=== PATIENT | male | born 1955 | race Hispanic/Latino ===

== ENCOUNTER → 2017-04-18 | Outpatient (CLI) | payer OTHER | LOC: GMAM 10:27 | PROVIDERS: ATTEND Family Medicine | DX: Z12.5 Encounter for screening for malignant neoplasm of prostate (principal) ==

== ENCOUNTER 2017-07-09 07:15 | Emergency (ER) | payer OTHER ==
[2017-07-09 07:38] VITALS: TEMP 98.1
--- NOTE | 2017-07-09 07:43 | ED.PDOC ---
History of Present Illness - General Chief Complaint: Laceration Stated Complaint: laceration Time Seen by Provider: 07/09/17 07:40 Source: patient Exam Limitations: no limitations - History of Present Illness Initial Comments: Mumtaz Gagnon 61 y/o male stated hurt his finger while working on his table saw at home sustainining skin laceration 07/08/2017.Initial wound care done at home.Came to get it checked. Timing/Duration: yesterday Severity: moderate Location: extremities - righ hand 3-4 th fingers Improving Factors: rest Worsening Factors: movement Associated Symptoms: denies symptoms Allergies/Adverse Reactions: Allergies NO KNOWN ALLERGY Allergy (Unverified 05/05/13 13:18) Home Medications: Ambulatory Orders Lisinopril 10 mg PO DAILY 06/02/14 Metformin HCl [Fortamet] 500 mg PO DAILY 06/02/14 Amoxicillin [Amoxil] 1,000 mg PO BID #30 cap 07/09/17 Simvastatin 0 mg PO DAILY 07/09/17 Review of Systems - Review of Systems Constitutional: States: no symptoms reported EENTM: States: no symptoms reported Respiratory: States: no symptoms reported Cardiology: States: no symptoms reported Skin: States: see HPI Past Medical History (General) - Patient Medical History Hx Seizures: No Hx Stroke: No Hx Dementia: No Hx Asthma: No Hx of COPD: No Hx Cardiac Disorders: No Hx Congestive Heart Failure: No Hx Pacemaker: No Hx Hypertension: Yes Hx Thyroid Disease: No Hx Diabetes: Yes Hx Gastroesophageal Reflux: No Hx Renal Disease: No Hx Cancer: No Hx of HIV: No Hx Hepatitis C: No Hx MRSA: No Surgical History: no surgical history - Vaccination History Hx Tetanus, Diphtheria Vaccination: - unknown Hx Influenza Vaccination: Yes Hx Pneumococcal Vaccination: No Immunizations Up to Date: No - Social History Hx Tobacco Use: Yes - quit 20 years ago Hx Alcohol Use: Yes - occasional Hx Substance Use: No Hx Substance Use Treatment: No Hx Depression: No - Female History Patient is a Female of Child Bearing Age (10 -59 yrs old): No Family Medical History - Family History Mother Family History: No Known Hx Family Hypertension: Yes - multiple family members Hx Family Diabetes: Yes - several family members Physical Exam - Physical Exam General Appearance: Alert, No apparent distress Eyes, Ears, Nose, Throat Exam: normal ENT inspection Neck: non-tender, supple Cardiovascular/Chest: normal peripheral pulses, regular rate, rhythm, no murmur Respiratory: chest non-tender, lungs clear Gastrointestinal/Abdominal: non tender, soft, no organomegaly Extremity: normal range of motion, non-tender, no calf tenderness Neurologic: alert, oriented x 3 Skin Exam: warm/dry, normal color Skin Problem Location: other - 3-4 finger right hand non gaping no bleeding clean Skin Character: other - laceration skin Lymphatic: no adenopathy Departure - Departure Clinical Impression: Minor skin laceration Time of Disposition: 07:49 Disposition: Discharge to Home or Self Care Condition: Fair Departure Forms: ED Discharge - Pt. Copy, Patient Portal Self Enrollment Instructions: DI for Minor Laceration Referrals: Brad Souza MD [Primary Care Provider] - 1-2 Weeks Prescriptions: Amoxicillin [Amoxil] 1,000 mg PO BID #30 cap Home Medications: Ambulatory Orders Lisinopril 10 mg PO DAILY 06/02/14 Metformin HCl [Fortamet] 500 mg PO DAILY 06/02/14 Amoxicillin [Amoxil] 1,000 mg PO BID #30 cap 07/09/17 Simvastatin 0 mg PO DAILY 07/09/17 Additional Instructions: Elevate right hand 20 degrees at bedtime until wound better
[2017-07-09] MEDS ORDERED: TETANUS,DIPHTHERIA,PERTUSSIS 1 EA SYG IM ONE (07:48)
[2017-07-09] MEDS ORDERED: NEOMYCIN-BACITRACIN-POLYMYXIN 0.9 GM UD TOP ONE (08:01)
[2017-07-09 08:11] VITALS: BP 158/62; O2SAT 98
== END 2017-07-09 08:10 | disposition home or self-care (01) ==
LOC: ER 07:15
DX: S61.212A Laceration without foreign body of right middle finger without damage to nail, initial encounter (principal); S61.214A Laceration without foreign body of right ring finger without damage to nail, initial encounter; I10 Essential (primary) hypertension; Z87.891 Personal history of nicotine dependence; W29.8XXA Contact with other powered hand tools and household machinery, initial encounter; Y92.009 Unspecified place in unspecified non-institutional (private) residence as the place of occurrence of the external cause

== ENCOUNTER → 2018-04-29 | Outpatient (CLI) | payer BC | LOC: GMAM 10:29 | PROVIDERS: ATTEND Family Medicine | DX: Z12.5 Encounter for screening for malignant neoplasm of prostate (principal) ==